=== PATIENT | female | born 1975 | race American Indian/Alaskan Native ===

== ENCOUNTER 2021-11-21 13:13 | Emergency (ER) | payer SELFPAY ==
[2021-11-21 13:19] VITALS: BP 153/85
--- NOTE | 2021-11-21 14:01 | Event Note ---
ED Screening Note ED Screening Note: Patient comes to the ER with reports of low blood pressure. On triage she was noted to have a heart rate of 140. The nurse pulled me aside to evaluate her for EKG. EKG was completed. It showed sinus tach in 120s. Patient to be evaluated in main ER. This initial assessment/diagnostic orders/clinical plan/treatment(s) is/are subject to change based on patients health status, clinical progression and re- assessment by fellow clinical providers in the ED. Further treatment and workup at subsequent clinical providers discretion. Patient/guardian urged not to elope from the ED as their condition may be serious if not clinically assessed and managed. Initial orders include: EKG: Patient is to be placed on a cardiac nurse. RN aware.
--- NOTE | 2021-11-23 10:38 | Electrocardiograph Report ---
[facility] Test Date: 2021-11-21 Test Time: 13:18:32 Pat Name: LEÓN ACEVEDO Department: Room: Gender: [place] [employer] Supervisor: RITA : 1975 Requested By: ROSSANA ANDRADE Order Number: [id number] Reading MD: Fred Vega Measurements Intervals [place] Rate: 120 P: 71 PA: 138 QRS: 72 QRSD: 74 T: -15 QT: 328 QTc: 464 Interpretive Statements Sinus tachycardia No previous ECG available for comparison Electronically Signed On 11-23-2021 10:37:44 EDT by Fred Vega
== END 2021-11-21 14:00 | disposition left against medical advice (07) ==
LOC: ED 13:13
DX: R03.1 Nonspecific low blood-pressure reading (principal); Z53.21 Procedure and treatment not carried out due to patient leaving prior to being seen by health care provider
CPT/HCPCS: 93005